=== PATIENT | female | born 1965 | race Caucasian/White ===

== ENCOUNTER 2018-03-08 09:46 | Emergency (ER) | payer OTHER, SELFPAY ==
--- NOTE | 2018-03-08 09:52 | ED_ITS ---
HPI - Female Genitourinary General Chief complaint: Urogenital-Female Stated complaint: blood in urine, discomfort Time Seen by Provider: 03/08/18 09:51 Source: patient Mode of arrival: ambulatory Limitations: no limitations History of Present Illness HPI Narrative: Patient is a 52-year-old female here for evaluation of blood in her urine. Patient states that she noticed it last evening. She states that it is coming from her urine and not from the bowel or the vagina. Does not on anticoagulation. Has chronic low back pain. Has never had a history of kidney stones. States she no longer has menstrual cycles. States she does have some burning when she urinates. No vomiting. Has not tried anything for it prior to arrival. Related Data Previous Rx's Medication Instructions Recorded nitrofurantoin monohyd/m-cryst 100 mg PO Q12H 5 Days #10 cap 03/08/18 [Macrobid] Allergies Allergy/AdvReac Type Severity Reaction Status Date / Time Penicillins [PENICILLINS] Allergy Mild Hives Verified 03/08/18 10:38 Review of Systems Constitutional Denies fatigue and Denies fever(s) ENT Ears, Nose, Mouth, and Throat: Denies dizziness Cardiovascular Denies chest pain, Denies syncope and Denies dyspnea Respiratory Denies dyspnea Gastrointestinal Gastrointestinal: Denies abdominal pain, Denies constipation, Denies cramping, Denies diarrhea, Denies nausea and Denies vomiting Genitourinary Reports amenorrhea, Reports hematuria, Reports dysuria, Denies urinary incontinence, Denies urinary hesitancy, Denies urinary urgency and Denies vaginal discharge Musculoskeletal Denies myalgias and Denies arthralgias Integumentary/Breasts Denies lesions and Denies rash Neurologic Denies dizziness and Denies syncope Endocrine Denies fatigue Hematologic/Lymphatic Denies easy bleeding and Denies easy bruising [facility] Social History Smoking Status: Former smoker Exam Initial Vital Signs Initial Vital Signs: Vital Signs Temperature 97.7 F 03/08/18 09:59 Pulse Rate 69 03/08/18 09:59 Respiratory Rate 16 03/08/18 09:59 Blood Pressure 144/82 H 03/08/18 09:59 Pulse Oximetry 99 03/08/18 09:59 HENMT Head: normal to inspection, normocephalic and atraumatic Resp Effort & Inspection: normal respiratory effort Auscultation: clear to auscultation bilaterally Cardio Rate: regular rate Rhythm: regular rhythm Pulses: radial pulses present GI Inspection: normal to inspection and non-distended Palpation: soft, No firm and No tender Skin Lesions: no lesions Rashes: no rashes Neuro General: alert, awake and oriented x3 Extrem General: normal to inspection Psych Appearance: grossly normal and well kempt Course Orders Ordered: ED Orders 03/08/18 09:49 Urinalysis and Microscopic Stat Urine Culture Stat Vital Signs - 8 hr 03/08/18 09:59 Temperature 97.7 F Pulse Rate 69 Respiratory Rate 16 Blood Pressure 144/82 H Pulse Oximetry 99 MDM - Female Genitourinary Lab Data Attestation: I reviewed the patient's lab results. Lab Results 03/08/18 Range/Units 09:49 Urine Color Red Urine Appearance Cloudy Urine pH 5.0 (4.5-8.0) Ur Specific [place] 1.025 (1.000-1.035) Urine Protein 2+ H (Negative) Urine Glucose (UA) Negative (Normal) g/dL Urine Ketones Trace H (NEGATIVE) Urine Occult Blood 3+ H (Negative) Urine Nitrate Negative (Negative) Urine Bilirubin Negative (NEGATIVE) Urine Urobilinogen 0.2 (0.2) E.U./dL Ur Leukocyte Esterase Negative (NEGATIVE) Urine RBC >100/hpf H (0-5/HPF) Urine WBC 1-5/hpf (0-5/HPF) Ur Squamous Epith Cells 0-1 /hpf Urine Bacteria Few (2-10) H (None) Ur Culture Indicated? Specimen cultured Micro UA Comment Not Reportable [facility] Narrative Medical decision making narrative: Patient is nontoxic appearing. He is afebrile. Physical exam is not consistent with a renal stone. Her urine does have blood in it. No white blood cells but does have bacteria. Given her dysuria and the blood in the urine will treat with a antibiotic. Patient was given return precautions. She was given instructions increase her fluid intake. She expressed understanding and agreement with plan. Discharge Plan Departure Patient Disposition: Home, Self-Care Clinical Impression: Hematuria, UTI (urinary tract infection) Instructions: DI for Hematuria Activity Restrictions/Additional Instructions: Take the antibiotics as directed. Call your primary care doctor for a follow- up. Return to the emergency department for any new or worsening symptoms. Prescriptions: New nitrofurantoin monohyd/m-cryst [Macrobid] 100 mg capsule 100 mg PO Q12H 5 Days Qty: 10 RF: 0
[2018-03-08 09:59] VITALS: BP 144/82; PULSE 69; RESP 16; TEMP 36.5; O2SAT 99
--- NOTE | 2018-03-08 10:34 | PC.NURSE ---
urine looked bad - cloudy and smelly - so sent to lab versus dip
[2018-03-08 10:39] LABS: Appearance Urine UA CLOUDY; Bilirubin Urine UA NEGATIVE (NEGATIVE); Color Urine UA RED; Glucose Urine UA NEGATIVE (Normal); Ketones Urine UA TRACE (NEGATIVE); Leukocyte Esterase Urine UA NEGATIVE (NEGATIVE); Nitrite Urine UA Negative (Negative); Occult Blood Urine UA 3+ (Negative); Protein Urine UA 2+ (Negative); Specific Gravity Urine UA 1.025 (1.000-1.035); Urobilinogen Urine UA 0.2 E.U./dL (0.2)
[2018-03-08 10:43] LABS: Bacteria Urine Few (2-10); Culture Indicated Urine Specimen Cultured; RBC Urine >100/HPF (0-5/HPF); Squamous Epithelial Cell Urine 0-1 /HPF; WBC Urine 1-5/HPF (0-5/HPF)
== END 2018-03-08 10:55 | disposition home or self-care (01) ==
PROVIDERS: Emergency Provider Emergency Medicine
DX: N39.0 Urinary tract infection, site not specified (principal); R31.9 Hematuria, unspecified
CPT/HCPCS: 81001; 87086; 99283